=== PATIENT | male | born 1945 | race Caucasian/White ===

== ENCOUNTER 2016-10-27 11:37 | Emergency (ER) | payer OTHER ==
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
[~2016-10-27 11:37] MED LIST: CIPRO250 MG PO; FLAGYL PO; FLOMAX0.4 M1 PO; FLONASE 0.05% N16 G1; FLONASE 0.05% N16 GM; FLONASE16 GM; FLOVENT DI50 MCG/DIS IH; GLUCOTROL5 MG/BOTTL PO; LIPITOR PO; LIPITOR20 MG PO; LISINOPRIL PO; LISINOPRIL20 MG PO; LORTAB 101 TAB 10/5 PO; LORTAB 5/500 TA1 TA1 PO; LORTAB 7.5-5001 TAB PO; NABUMETONE PO; NAPROXEN PO; NEOMYCIN SULFATE PO; [UNRECOGNIZED DRUG - OTHER]
[2017-02-04] MEDS ORDERED: PRINIVIL40 MG PO (12:35)
[2017-02-04] MEDS ORDERED: LIPITOR20 MG PO (12:36)
[2017-02-04] MEDS ORDERED: FLOVENT DISKUS50 MCG (12:36)
[2017-02-04] MEDS ORDERED: FLOMAX0.4 M1 DOB (12:36)
[2017-02-04] MEDS ORDERED: GLUCOTROL (12:37)
== END 2016-10-27 11:44 | disposition home or self-care (01) ==
LOC: CFTX 11:37
DX: S39.012A Strain of muscle, fascia and tendon of lower back, initial encounter (principal); E11.9 Type 2 diabetes mellitus without complications; I10 Essential (primary) hypertension; Z88.1 Allergy status to other antibiotic agents; V49.40XA Driver injured in collision with unspecified motor vehicles in traffic accident, initial encounter; Y92.410 Unspecified street and highway as the place of occurrence of the external cause
CPT/HCPCS: 72100; 99283

== ENCOUNTER 2016-11-09 16:06 | Emergency (ER) | payer OTHER ==
--- NOTE | ~2016-11-09 | CR195 ---
[facility] A Service [facility] RADIOLOGY TEXT RESULTS PATIENT: ARABELLA IRVING LOCATION: SED : 44 UNIT #: [id number] AGE: [address]: Braxton Cardona MD SEX: M ORDER DR: [id number] [place] [address] [id number] E MR#: [id number] Acc #: [id number] NAME: ARABELLA IRVING : 1945 SEX: M STUDY DATE/TIME: 11/09/2016 16:34 UNIT: SED ROOM: STUDY DESCRIPTION: Neck Soft Tissue Attending Physician: Braxton Cardona M.D. Ordering Physician: Braxton Cardona M.D. Primary Care Physician: Mario Rollins M.D. MEDICAL IMAGING REPORT This report is preliminary unless electronic signature is present. EXAM Neck soft tissues series. INDICATIONS Food stuck in the throat for the past 2 hours. PROCEDURE AP lateral views of the neck utilizing soft tissue technique. COMPARISON None. FINDINGS No radiodense foreign body is seen. There is nonspecific soft tissue fullness in the region of the thyroid cartilage. Mild degenerative change in the cervical spine. IMPRESSION Soft tissue density in the region of the thyroid cartilage measuring approximately 3 cm. This could be a normal structure, but cannot exclude that it represents a food bolus. There is no radiodense foreign body. Dictated by... Mir Duque M.D. THIS IS AN ELECTRONICALLY VERIFIED REPORT Mir Duque M.D. at 11/12/2016 7:01 AM EED/gz TD: 11/10/2016 08:29 JOB #: [id number] [facility] A Service [facility] RADIOLOGY TEXT RESULTS PATIENT: ARABELLA IRVING LOCATION: SED : 44 UNIT #: [id number] AGE: [address]: Braxton Cardona MD SEX: M ORDER DR: MEDICAL IMAGING REPORT
[2016-11-09 16:29] LABS: BASOPHIL# 0.1 X10e3 (0-0.3); EOSINOPHIL# 0.1 X10e3 (0-0.7); EOSINOPHIL% 1.7 % (0.0-7.0); HEMATOCRIT 42.8 % (38.0-50.0); HEMOGLOBIN 14.4 gm/dL (13.0-16.0); LYMPHOCYTE# 1.4 X10e3 (1.0-3.5); MEAN CELL VOLUME 89.5 FL (83-96); MEAN CORPUSCULAR HEMOGLOBIN 30.2 PG (28-34); MEAN CORPUSCULAR HGB CONC 33.7 g/dL (30-36); MEAN PLATELET VOLUME 7.9 FL (6.5-11.5); MONOCYTE# 0.4 X10e3 (0-1.0); NEUTROPHIL# 4.5 X10e3 (1.5-7.1); NEUTROPHIL% 69.3 % (40-75); PLATELET COUNT 320 X10e3 (140-420); RED BLOOD COUNT 4.78 X10e (3.90-5.60); RED CELL DISTRIBUTION WIDTH 13.8 % (11.0-15.5); WHITE BLOOD COUNT 6.4 X10e3 (4.0-10.5)
[2016-11-09 16:32] LABS: DIFF IND NO
[2016-11-09 16:45] LABS: BLOOD UREA NITROGEN 25 mg/dL (9-23); BUN/CREATININE RATIO 22.72; CALCIUM SERUM 9.3 mg/dL (8.4-10.2); CARBON DIOXIDE 26 mmol/L (22-31); CHLORIDE 102 mmol/L (100-111); CREATININE SERUM 1.1 mg/dL (0.6-1.4); GLOM FILT RATE Estimated ABOVE60 mL/min (>60); GLUCOSE FASTING 198 mg/dL (70-110); POTASSIUM 3.9 mmol/L (3.5-5.1); SODIUM 137 mmol/L (135-145)
[2017-02-04] MEDS ORDERED: PRINIVIL40 MG PO (12:35)
[2017-02-04] MEDS ORDERED: LIPITOR20 MG PO (12:36)
[2017-02-04] MEDS ORDERED: FLOVENT DISKUS50 MCG (12:36)
[2017-02-04] MEDS ORDERED: FLOMAX0.4 M1 DOB (12:36)
[2017-02-04] MEDS ORDERED: GLUCOTROL (12:37)
== END 2016-11-09 21:21 | disposition hospice, home (50) ==
LOC: SED 16:06
PROVIDERS: Emergency Medicine
DX: T18.128A Food in esophagus causing other injury, initial encounter (principal); E11.9 Type 2 diabetes mellitus without complications; K21.9 Gastro-esophageal reflux disease without esophagitis; I10 Essential (primary) hypertension; Z85.46 Personal history of malignant neoplasm of prostate; Z88.1 Allergy status to other antibiotic agents; Z87.891 Personal history of nicotine dependence
CPT/HCPCS: 36415; 70360; 80048; 85025; 96361; 96374; 96375; 99285; C9113; J2405

== ENCOUNTER → 2017-02-04 | Day surgery (SDC) | payer OTHER ==
[~2017-02-04] MED LIST changes: +FLOMAX0.4 M1 DOB; +FLOVENT DISKUS50 MCG; +GLUCOTROL; +PRINIVIL40 MG PO
--- NOTE | ~2017-02-04 | OR ---
Unit #: [id number] #: [id number] Patient: ARABELLA IRVING [id number] [address] [place], [place] [address] [id number] O MR#: [id number] NAME: ARABELLA IRVING ROOM: Date of Procedure: 02/04/2017 Admission Date: 02/04/2017 Surgeon: Brian Wang Jr., M.D. : 1945 Attending Physician: Brian Wang Jr., M.D. Primary Care Physician: Mario Rollins M.D. OPERATIVE REPORT INDICATIONS FOR PROCEDURE The patient is a 71-year-old white male who recently presented to the office, complaining of progressive dysphagia. He has had a known past history for esophageal stenosis and also past history of colon cancer. He was brought in this time for EGD and colonoscopy at his request. He understands the procedure including the risks, including that of perforation and bleeding, and consents. PREOPERATIVE DIAGNOSIS Recurrent esophageal stenosis with dysphagia and past history of colon cancer, rule out recurrence or new primary. ANESTHESIA MAC anesthesia. PROCEDURE PERFORMED Flexible fiberoptic esophagogastroduodenoscopy with antral biopsy for Helicobacter pylori and balloon dilatation of the distal esophagus from 18 to 19 to 20 mm balloon dilator and colonoscopy to the distal ileum with biopsy of a small polyp of the sigmoid at 20 cm. DESCRIPTION OF PROCEDURE The patient was positioned in King position with left side down. After being given MAC anesthesia, the Olympus XQ scope was passed through the proximal esophagus. The entire esophagus was examined. Proximal two-thirds appeared normal. In the area of the distal esophagus, there was a Schatzki ring with [id number] esophageal stenosis. The scope was advanced through this area without significant resistance, so into the cardia, fundic, and antral region of the stomach and retroflexed back up to the area of the cardia. There was a small hiatal hernia present. The stomach distended well without evidence of rigidity. No evidence of any gastric ulcer disease. There was some mild hemorrhagic gastritis involving the antrum. A biopsy from the antrum which was taken for Helicobacter pylori without significant bleeding. The scope was advanced through the pylorus and the duodenal bulb and down to the second portion of the duodenum. The entire duodenal portion examination was within normal limits. The ampulla was prominent, but appeared normal. The scope was brought back up the area of the stomach, where 18 to 20 mm balloon dilator was placed brought up in the distal esophagus, then slowly used to dilate the distal esophagus from 18 to 19 to 20 mm. The balloon dilator was removed. The Schatzki ring was dilated well with minimal amount of bleeding. No evidence of any perforation of the distal esophagus or Unit #: [id number] #: [id number] Patient: ARABELLA IRVING. The scope was removed. The patient repositioned for colonoscopy. Digital rectal examination was performed, which revealed no palpable mass or tenderness. No blood or stool within the rectal ampulla. Prostate was normal by palpation. The Olympus colonoscope was advanced through the anal canal up the rectum and retroflexed down to the area of the anorectal region. There were a few small internal hemorrhoids and of no significance. No evidence of any fissures. The scope was then straightened and advanced up the rectosigmoid. In the sigmoid where there was a small 1 to 2 mm polyp which was removed with 2 bites with the cold biopsy forceps without bleeding. The scope was then advanced up in the sigmoid and descending colon areas, where there were few diverticula without evidence of diverticulitis. The scope was then advanced around the splenic flexure, the transverse colon, around hepatic flexure and ascending colon, down in the area of the cecum. The light from the tip of the scope could be seen transilluminating through right lower quadrant abdominal wall area. The scope was advanced up the distal ileum approximately 10 to 12 inches. There was no evidence of any ileitis or inflammatory bowel disease. The scope was slowly removed. There were no tumors except for the one small polyp at 20 cm. There were no other polyps, no cancer, no AVMs. No evidence of any colitis or acute diverticulitis. The caliber of the colon appeared normal throughout without evidence of narrowing or obstruction. The scope was removed. The patient tolerated the procedure well, discharged in satisfactory condition. Dictated by... Brian Wang Jr., M.D. JMB/mj TD: 02/05/2017 06:34 JOB #: [id number] OPERATIVE REPORT Page 1 of 1 X Brian Wang MD PROCEDURE OPERATIVE NOTE
== END | disposition home or self-care (01) ==
LOC: COPS 11:38
DX: Z12.11 Encounter for screening for malignant neoplasm of colon (principal); K63.5 Polyp of colon; K22.2 Esophageal obstruction; K57.30 Diverticulosis of large intestine without perforation or abscess without bleeding; K29.71 Gastritis, unspecified, with bleeding; K64.8 Other hemorrhoids; K44.9 Diaphragmatic hernia without obstruction or gangrene; K21.9 Gastro-esophageal reflux disease without esophagitis; I10 Essential (primary) hypertension; E11.9 Type 2 diabetes mellitus without complications; Z85.038 Personal history of other malignant neoplasm of large intestine; Z85.46 Personal history of malignant neoplasm of prostate; Z87.442 Personal history of urinary calculi; Z86.010 Personal history of colon polyps; Z87.891 Personal history of nicotine dependence; Z88.1 Allergy status to other antibiotic agents; Z79.51 Long term (current) use of inhaled steroids; Z79.84 Long term (current) use of oral hypoglycemic drugs; Z79.899 Other long term (current) drug therapy; Z90.49 Acquired absence of other specified parts of digestive tract; Z98.49 Cataract extraction status, unspecified eye; Z98.890 Other specified postprocedural states
CPT/HCPCS: 82947; 87077; 88305; J2250